=== PATIENT | male | born 1980 | race Caucasian/White ===

== ENCOUNTER 2017-03-13 22:41 | Emergency (ER) | payer SELFPAY ==
[~2017-03-13] VITALS: Ht 190.5 cm; Wt 75.0 kg
[2017-03-13 22:47] VITALS: Ht 190.5 cm; Wt 75.0 kg
[2017-03-13] MEDS ORDERED: KETOROLAC 60 MG INJ IM STA (23:12)
--- NOTE | 2017-03-14 00:47 | RADRPT ---
PROCEDURE: XR Hand. CLINICAL INDICATION: Pain TECHNIQUE: AP oblique and lateral views of the right hand were obtained. COMPARISON: 11/08/2009 FINDINGS: No acute fracture or dislocation is seen. Old fracture ulnar aspect of the base of the proximal pha lanx of the thumb. IMPRESSION: No acute abnormality seen. Please see above. RPTAT: HJES .Raymond Cerna MD, MD Date Time Electronically viewed and signed by .Raymond Cerna MD, MD on 03/14/2017 00:46 .S/
--- NOTE | 2017-03-14 00:48 | RADRPT ---
PROCEDURE: RIGHT knee x-ray CLINICAL INDICATION: Pain TECHNIQUE: AP, lateral and oblique views of the knee were obtained. COMPARISON: 11/08/2009 FINDINGS: Suggestive of small effusion in the suprapatellar bursa. No fracture or dislocation is seen. No si gnificant appearing arthritic changes are seen. IMPRESSION: Suggestive of small effusion in the suprapatellar bursa. RPTAT: HJES .Raymond Cerna MD, MD Date Time Electronically viewed and signed by .Raymond Cerna MD, on 03/14/2017 00:48 .S/
[2017-03-14] MEDS ORDERED: NAPR-260 PO (00:52)
--- NOTE | 2017-03-14 00:53 | ERD ---
ER Documentation Chief Complaint Date/Time DATE: 03/14/17 TIME: 00:52 Chief Complaint c/o right hand/wrist radiating to rt shoulder and rt knee today. HPI This is a 36-year-old male, the right hand and wrist pain. His history of cyst there. He says this is fine. He said he also tweaked his knee yesterday and complaining of some right knee pain. Denies any fevers or chills. Denies any nausea vomiting. Denies any other current complaints. ROS All systems reviewed and are negative except as per history of present illness. Medications Home Meds Active Scripts Naproxen* (Naprosyn*) 500 Mg Tablet, 500 MG PO BID Y for PAIN AND/OR INFLAMMATION, #30 TAB Prov:GEOVANNABUCK 03/14/17 Allergies Allergies: Coded Allergies: No Known Allergy (Unverified , 03/13/17) PMhx/Soc Medical and Surgical Hx: pt denies Medical Hx, pt denies Surgical Hx History of Surgery: Yes (CARPEL TUNNEL) Anesthesia Reaction: No Hx Neurological Disorder: No Hx Respiratory Disorders: No Hx Cardiac Disorders: No Hx Psychiatric Problems: No Hx Alcohol Use: No Hx Substance Use: No Hx Tobacco Use: No Smoking Status: Never smoker Physical Exam Vitals Vital Signs Date Time Temp Pulse Resp B/P Pulse Ox O2 Delivery O2 Flow Rate FiO2 03/13/17 22:47 97.0 72 20 124/84 96 Physical Exam Const: [] Head: Atraumatic Eyes: Normal Conjunctiva ENT: Normal External Ears, Nose and Mouth. Neck: Full range of motion..~ No meningismus. Resp: Clear to auscultation bilaterally Cardio: Regular rate and rhythm, no murmurs Abd: Soft, non tender, non distended. Normal bowel sounds Skin: No petechiae or rashes Back: No midline or flank tenderness Ext: No cyanosis, or edema Neur: Awake and alert Psych: Normal Mood and Affect Results 24 hrs Current Medications Medications (Trade) Dose Ordered Sig/Butch Route PRN Reason Start Time Stop Time Status Last Admin Dose Admin Ketorolac Tromethamine (Toradol) 60 mg ONCE STAT IM 03/13/17 23:12 03/13/17 23:14 DC 03/13/17 23:28 Procedures/MDM X-ray Hand 3V interpreted by me: Scaphoid: Normal Bones: No fracture Joints: No dislocation Foreign body: None X-ray Knee 3V Interpreted by me: Bones: No fracture Joints: No dislocation Foreign body: None Medical decision-making: This is a 36 old gentleman has a ganglion cyst that is inflamed along with a mild knee sprain. At this point clinically stable. Discharge of Naprosyn. Follow-up with primary care physician for orthopedic referral. Departure Diagnosis: Primary Impression: Pain of hand Laterality: right Qualified Code: M79.641 - Pain of right hand Additional Impressions: Ganglion cyst Knee sprain Encounter type: initial encounter Involved ligament of knee: unspecified ligament Laterality: right Qualified Code: S83.91XA - Sprain of right knee, unspecified ligament, initial encounter Condition: Stable Patient Instructions: Ganglion Cyst: Hand, Knee Sprain BUCK AUSTIN March 14, 2017 00:53
[2017-03-14 01:06] VITALS: BP 133/68; PULSE 84; RESP 16
== END 2017-03-14 01:06 | disposition home or self-care (01) ==
LOC: E/R 22:41
DX: S83.91XA Sprain of unspecified site of right knee, initial encounter (principal); M79.641 Pain in right hand; M67.461 Ganglion, right knee; X50.9XXA Other and unspecified overexertion or strenuous movements or postures, initial encounter; Y92.9 Unspecified place or not applicable
CPT/HCPCS: 73130; 73562; 96372; 99284; J1885

== ENCOUNTER 2017-06-18 22:46 | Emergency (ER) | payer SELFPAY ==
[~2017-06-18] VITALS: Ht 182.9 cm; Wt 90.0 kg
[~2017-06-18 22:46] MED LIST: NAPR-260 PO
[2017-06-18 22:53] VITALS: Ht 182.9 cm; Wt 90.0 kg
[2017-06-18] MEDS ORDERED: LORAZEPAM 2 MG INJ ONE (22:59)
[2017-06-18] MEDS ORDERED: LORAZEPAM 2 MG INJ IV ONE (23:00)
[2017-06-18] MEDS ORDERED: SOD CHLORIDE 0.9% 1,000 ML IV STA (23:07)
[2017-06-19] MEDS ORDERED: ONDA4TAB8 PO (00:26)
[2017-06-19 02:50] VITALS: BP 123/76; PULSE 64; RESP 8; TEMP 98.2
--- NOTE | 2017-06-19 03:16 | ERD ---
ER Documentation Chief Complaint Date/Time DATE: 06/19/17 TIME: 03:12 Chief Complaint bib RA from home family called for ETOH HPI 36-year-old man brought in by EMS from home for alcohol intoxication. Patient was drinking for most of the evening today and when he felt very weak and had an episode of vomiting family members called 911. Patient was transported here by EMS without complications. Patient has had no suicidal homicidal ideation, no fevers or chills, no seizure activity, no complaints of chest pain or shortness of breath. ROS All systems reviewed and are negative except as per history of present illness. Medications Home Meds Active Scripts Ondansetron Hcl* (Zofran*) 4 Mg Tablet, 4 MG PO Q6H for NAUSEA AND/OR VOMITING, #12 TAB Prov:FABIANA CHAPPELL MD 06/19/17 Naproxen* (Naprosyn*) 500 Mg Tablet, 500 MG PO BID Y for PAIN AND/OR INFLAMMATION, #30 TAB Prov:BUCK AUSTIN 03/14/17 Allergies Allergies: Coded Allergies: No Known Allergy (Unverified , 03/13/17) PMhx/Soc Alcohol abuse History of Surgery: Yes (CARPEL TUNNEL) Anesthesia Reaction: No Hx Neurological Disorder: No Hx Respiratory Disorders: No Hx Cardiac Disorders: No Hx Psychiatric Problems: No Hx Alcohol Use: Yes Hx Substance Use: No Hx Tobacco Use: No Smoking Status: Unknown if ever smoked FmHx Family History: No diabetes Physical Exam Vitals Vital Signs Date Time Temp Pulse Resp B/P Pulse Ox O2 Delivery O2 Flow Rate FiO2 06/19/17 02:50 98.2 64 8 123/76 96 Room Air 06/18/17 22:53 96 22 133/85 96 Physical Exam GENERAL: Well-developed, well-nourished man, intoxicated with alcohol on breath HEENT: Moist mucous membranes, pink conjunctiva, no cervical spine tenderness or step-off deformities, no goiter, no jaundice or icterus, extraocular movements intact without pain. No submandibular induration, and no pharyngeal erythema NEURO: Initially agitated, moving all extremities, pupils equal round reactive to light, no focal deficits or facial asymmetry CARDIAC: Regular rate and rhythm, no murmurs rubs or gallops LUNGS: Clear bilaterally no wheezing crackles or stridor ABDOMEN: Soft nontender, no guarding, no rigidity, no rebound, no psoas sign no obturator sign. Normoactive bowel sounds SKIN: Warm and dry to touch, no abrasions, contusions, or hematomas, no lacerations, no ecchymosis, no target lesions, and without ulcers EXTREMITIES: No clubbing cyanosis or edema, calves are bilaterally symmetrical, no Homans sign, no popliteal cord sign. Distal pulses equal and bilateral PSYCH: Agitated Results 24 hrs Laboratory Tests Test 06/18/17 23:12 Ethyl Alcohol Level 178.0mg/dl Current Medications Medications (Trade) Dose Ordered Sig/Butch Route PRN Reason Start Time Stop Time Status Last Admin Dose Admin Lorazepam 1 mg 1 mg ONCE ONCE IV 06/18/17 23:00 06/18/17 23:01 DC Sodium Chloride (NS) 1,000 ml @ 1,000 mls/hr Q1H STAT IV 06/18/17 23:07 06/19/17 00:06 DC 06/18/17 23:14 Procedures/MDM IV line was established patient was placed on monitor tech rhythm strip revealed a sinus rhythm at about 80 bpm with upright P and T waves. Patient was afebrile. I administered 1 L of normal saline intravenously and lorazepam 0.5 mg IV 1 for initial agitation. Observation Note: Time: 5 hours Family Hx: No Hypertension Evaluation: Multiple exams showed improving symptoms and no evidence of decreasing mental status. Patient's vital signs remained normal mental status improved, he was able to ambulate without difficulty and discharge with his brother who was at the bedside. Ethanol level is elevated at 178 consistent with this presentation. Differential diagnoses considered, included but not limited to acute coronary syndrome, pulmonary embolism, aortic dissection, abdominal aortic aneurysm, sepsis, stroke, meningitis, encephalitis, pneumonia, appendicitis, cholecystitis , bowel obstruction, pyelonephritis, nephrolithiasis, cystitis, as well as metabolic, hematologic, and electrolyte abnormalities. As well as abscess, cellulitis, fractures, and dislocations. Patient feels much better at this time, and vital signs are normal, symptoms have improved. I did give strict instructions to return to the ED if symptoms continue or worsen, patient will otherwise follow-up with primary care physician. Patient understood instructions and agreed to plan. Disclaimer: Inadvertent spelling and grammatical errors are likely due to EHR/ dictation software use and do not reflect on the overall quality of patient care. Also, please note that the electronic time recorded on this note does not necessarily reflect the actual time of the patient encounter. Departure Diagnosis: Primary Impression: Alcohol poisoning Encounter type: initial encounter Injury intent: accidental or unintentional Qualified Code: T51.91XA - Alcohol poisoning, accidental or unintentional, initial encounter Additional Impression: Acute encephalopathy Condition: Good Patient Instructions: Alcohol Intoxication FABIANA CHAPPELL MD Jun 19, 2017 03:16
== END 2017-06-19 02:51 | disposition home or self-care (01) ==
LOC: E/R 22:46
DX: T51.91XA Toxic effect of unspecified alcohol, accidental (unintentional), initial encounter (principal); G93.41 Metabolic encephalopathy; R40.2142 Coma scale, eyes open, spontaneous, at arrival to emergency department; R40.2252 Coma scale, best verbal response, oriented, at arrival to emergency department; R40.2362 Coma scale, best motor response, obeys commands, at arrival to emergency department
CPT/HCPCS: 80306; 96360; 99284; J2060; J7030

== ENCOUNTER 2017-07-05 23:14 | Emergency (ER) | payer SELFPAY ==
[~2017-07-05] VITALS: Ht 190.5 cm; Wt 81.7 kg
[~2017-07-05 23:14] MED LIST changes: +ONDA4TAB8 PO
[2017-07-05 23:18] VITALS: Ht 190.5 cm; Wt 81.7 kg
== END 2017-07-06 04:53 | disposition left against medical advice (07) ==
LOC: FTE 23:14
DX: Z53.21 Procedure and treatment not carried out due to patient leaving prior to being seen by health care provider (principal)